=== PATIENT | male | born 1970 | race Caucasian/White ===

== ENCOUNTER → 2023-11-28 07:08 | Outpatient (REF) | payer BC, SELFPAY | LOC: HWRAD 07:08 | PROVIDERS: ATTENDING PHYSICIAN Nurse Practitioner Adult Health | DX: Z87.891 Personal history of nicotine dependence (principal) | CPT/HCPCS: 71271 ==

== ENCOUNTER → 2023-12-14 06:56 | Outpatient (REF) | payer BC, SELFPAY | LOC: RSP 06:56 | PROVIDERS: ATTENDING PHYSICIAN Nurse Practitioner Adult Health | DX: R06.09 Other forms of dyspnea (principal); Z87.891 Personal history of nicotine dependence; F17.210 Nicotine dependence, cigarettes, uncomplicated | CPT/HCPCS: 94060 ==

== ENCOUNTER → 2024-05-06 07:51 | Outpatient (REF) | payer BC, SELFPAY | LOC: HWRAD 07:51 | PROVIDERS: ATTENDING PHYSICIAN Surgery; FAMILY PHYSICIAN Nurse Practitioner Adult Health | DX: R31.9 Hematuria, unspecified (principal) | CPT/HCPCS: 76770 ==

== ENCOUNTER → 2024-11-11 07:41 | Outpatient (REF) | payer BC, SELFPAY | LOC: HWRAD 07:41 | PROVIDERS: ATTENDING PHYSICIAN Surgery; FAMILY PHYSICIAN Nurse Practitioner Adult Health | DX: C67.0 Malignant neoplasm of trigone of bladder (principal) | CPT/HCPCS: 76770 ==

== ENCOUNTER → 2024-11-13 15:48 | Outpatient (REF) | payer BC, SELFPAY | LOC: HWRCS 15:48 | PROVIDERS: ATTENDING PHYSICIAN Nurse Practitioner; FAMILY PHYSICIAN Nurse Practitioner Adult Health | DX: I25.10 Atherosclerotic heart disease of native coronary artery without angina pectoris (principal); I77.810 Thoracic aortic ectasia; M79.605 Pain in left leg | CPT/HCPCS: 93306 ==

== ENCOUNTER → 2024-11-29 07:52 | Outpatient (REF) | payer BC, SELFPAY | LOC: HWRAD 07:52 | PROVIDERS: ATTENDING PHYSICIAN Nurse Practitioner Adult Health | DX: Z87.891 Personal history of nicotine dependence (principal) | CPT/HCPCS: 71271 ==

== ENCOUNTER → 2025-03-04 06:38 | Outpatient (REF) | payer BC, SELFPAY | LOC: RAD 06:38 | PROVIDERS: ATTENDING PHYSICIAN Nurse Practitioner; FAMILY PHYSICIAN Nurse Practitioner Adult Health | DX: I25.10 Atherosclerotic heart disease of native coronary artery without angina pectoris (principal); M79.605 Pain in left leg; I77.810 Thoracic aortic ectasia | CPT/HCPCS: 93922; 93925 ==